=== PATIENT | female | born 1990 | race African-American/Black ===

== ENCOUNTER 2018-02-04 11:13 | Outpatient (RCR) | payer OTHER ==
[~2018-02-04 11:13] MED LIST: PRENATAL PLUS1 TA2 PO
== END 2018-05-05 | disposition home or self-care (01) ==
LOC: WSOH
DX: S76.012A Strain of muscle, fascia and tendon of left hip, initial encounter (principal); X58.XXXA Exposure to other specified factors, initial encounter; Y92.129 Unspecified place in nursing home as the place of occurrence of the external cause; Y99.0 Civilian activity done for income or pay

== ENCOUNTER 2020-05-16 16:21 | Emergency (ER) | payer BC ==
[~2020-05-16] VITALS: Ht 165.1 cm; Wt 77.7 kg
[2020-05-16 16:31] VITALS: TEMP 98.2
[2020-05-16 16:49] LABS: COLLECTION METHOD CLEAN CATCH
[2020-05-16 16:55] LABS: MUCOUS Present /lpf; PH 5 (5-8); URINE APPEARANCE Hazy; URINE BACTERIA Rare /hpf; URINE BILIRUBIN Negative (NEGATIVE); URINE BLOOD 1+ (NEGATIVE); URINE COLOR Yellow; URINE GLUCOSE Negative (NEGATIVE); URINE KETONE Trace (NEGATIVE); URINE LEUKOCYTE ESTERASE Negative (NEGATIVE); URINE NITRATE Negative (NEGATIVE); URINE PROTEIN(semi-quant) Negative (NEGATIVE); URINE RBC 0-2 /hpf; URINE UROBILINOGEN Negative (NEGATIVE)
[2020-05-16 17:46] LABS: BASO % 0.7 % (0.0-2.0); EOS % 0.4 % (0-4.0); GRAN # 3.3 (1.4-6.5); GRAN % 59.3 % (42.2-75.2); LYMPH # 1.7 (1.2-3.4); LYMPH % 31.1 % (20.0-51.0); MEAN CELL VOLUME 72 fl (80.0-100.0); MEAN CORPUSCULAR HGB CONC 29 g/dl (33.0-37.0); MEAN PLATELET VOLUME 9.8 fl (7.4-10.4); MONO # 0.5 (0.1-0.6); MONO % 8.3 % (1.7-9.3); PLATELET COUNT 360 K/mm3 (130-400); RED BLOOD COUNT 4.34 M/mm3 (4.10-5.30); REDCELL DISTRIBUTION WIDTH-CV 18.2 % (11.5-14.5)
[2020-05-16 17:48] LABS: HEMATOCRIT 31.4 % (37.0-47.0); HEMOGLOBIN 9.2 g/dl (12.5-16.0); MEAN CORPUSCULAR HEMOGLOBIN 21 pg (27.0-31.0)
[2020-05-16 18:06] LABS: BILIRUBIN,TOTAL 0.2 mg/dL (0.0-1.0); CALCIUM 9.9 mg/dL (8.4-10.2); CREATININE, serum 0.75 (0.52-1.25); POTASSIUM 4.2 mmol/L (3.4-5.0); TOTAL PROTEIN 9.4 gm/dL (6.4-8.2)
[2020-05-16 18:26] LABS: C-REACTIVE PROTEIN 0.5 mg/dL (0.0-0.9)
[2020-05-16 20:58] VITALS: BP 121/70; PULSE 80
== END 2020-05-16 21:00 | disposition home or self-care (01) ==
LOC: COL.ER 16:21
PROVIDERS: Family Medicine
DX: R10.31 Right lower quadrant pain (principal); N83.201 Unspecified ovarian cyst, right side; Z79.02 Long term (current) use of antithrombotics/antiplatelets
CPT/HCPCS: J2405; J3010; J7120; Q9967

== ENCOUNTER 2021-08-15 14:30 | Outpatient (RCR) | payer OTHER ==
[2021-08-08 15:07] VITALS: BP 111/72; PULSE 68; TEMP 98.3
--- NOTE | 2021-08-08 16:31 | NUR ---
INT DC'd. Pt remained in dept for over 30 mins with no s/s of adverse reaction. She exits dept with steady gait.
[~2021-08-15] VITALS: Ht 165.1 cm; Wt 97.4 kg
[~2021-08-15 14:30] MED LIST changes: +MELATONIN5 M1 PO
== END 2021-08-16 | disposition home or self-care (01) ==
LOC: EUO
DX: D50.9 Iron deficiency anemia, unspecified (principal)
CPT/HCPCS: J1756

== ENCOUNTER 2021-08-29 14:59 | Outpatient (RCR) | payer OTHER ==
[~2021-08-29] VITALS: Ht 165.1 cm; Wt 97.4 kg
[2021-08-29 15:34] VITALS: BP 102/65; PULSE 71; TEMP 99.3
== END 2021-08-29 16:38 | disposition home or self-care (01) ==
LOC: EUO 14:59
DX: D50.9 Iron deficiency anemia, unspecified (principal)
CPT/HCPCS: J1756